=== PATIENT | female | born 1980 | race Two or more races ===

== ENCOUNTER 2025-02-22 23:48 | Emergency (ER) | payer OTHER ==
[~2025-02-22] VITALS: Ht 175.3 cm; Wt 52.2 kg
[2025-02-23] MEDS ORDERED: 0.9 % SODIUM CHLORIDE 1,000 ML IV ONE (01:45)
[2025-02-23] MEDS ORDERED: KETOROLAC TROMETHAMINE 30 MG VIAL IM STA (01:47)
[2025-02-23] MEDS ORDERED: KETOROLAC TROMETHAMINE 30 MG VIAL ONE (01:49)
[2025-02-23] MEDS ORDERED: BARIUM SULFATE 450 ML ORAL.SUSP PO ONE (01:52)
[2025-02-23 02:40] LABS: URINE APPEARANCE Clear; URINE BILIRRUBIN Negative (NEGATIVE); URINE BLOOD Negative; URINE COLOR Yellow; URINE GLUCOSE Negative (NEGATIVE); URINE LEUKOCYTE Trace; URINE NITRATE Negative; URINE PROTEIN Trace (NEGATIVE); URINE UROBILINOGEN 0.2 E.U./dl
[2025-02-23 02:41] LABS: BASO % 0.3 % (0.1-1.2); EOS # 0.01 (0.04-0.54); EOS % 0.1 % (0.7-7.0); HEMATOCRIT 35.6 % (34.1-44.9); HEMOGLOBIN 11.9 g/dL (11.2-15.7); LYMPH # 0.22 (1.18-3.74); LYMPH % 3.1 % (19.3-53.1); MEAN CORPUSCULAR HEMOGLOBIN 28.4 pg (25.6-32.2); MONO # 0.62 (0.24-0.82); MONO % 8.6 % (4.7-12.5); NEUT # 6.32 (1.56-6.13); NEUT % 87.6 % (34.0-71.1); RED BLOOD COUNT 4.19 M/uL (3.93-5.22); RED CELL DISTRIBUTION WIDTH 12.4 % (11.6-14.4)
[2025-02-23 02:45] LABS: URINE BACTERIA 199.4 uL (0.0-1933); URINE EPITHELIAL CELLS 27.9 uL (0.0-38.8); URINE RBC 4.2 uL (0.0-20.8); URINE WBC 9.3 uL (0.0-23.2)
[2025-02-23 02:56] LABS: PLATELET COUNT 124 K/uL (163-369)
[2025-02-23 02:57] LABS: URINE CAST 0.58 uL (0.0-1.40); URINE KETONE 80 (NEGATIVE)
[2025-02-23 02:58] LABS: INR 1.15; PARTIAL THROMBOPLASTIN TIME 29.9 SECONDS (22.0-34.0); PROTHROMBIN TIME 12.4 SECONDS (9.0-11.5)
[2025-02-23 03:05] LABS: ALBUMIN 4.2 gm/dL (3.4-5.0); ALKALINE PHOSPHATASE 61 U/L (50-136); ALT/SGPT 21 U/L (12-78); AMYLASE 69 U/L (25-115); ANION GAP 11 (10.0-20.0); AST/SGOT 15 U/L (15-37); BILIRUBIN TOTAL 0.69 mg/dL (0.3-1.2); BILIRUBIN,CONJUGATED 0.17 mg/dL (0.0-0.2); BILIRUBIN,UNCONJUGATED 0.52 mg/dL (0.0-0.6); BLOOD UREA NITROGEN 7 mg/dL (7-18); BUN CREA RATIO 10 (7.0-25.0); CALCIUM 9.2 mg/dL (8.5-10.1); CARBON DIOXIDE 26 mEq/L (21-32); CHLORIDE 106 mmol/L (98-107); GFR 91.33; GLOBULINA 3.7 G/DL (2.4-3.5); GLUCOSE FASTING 108 mg/dL (65-100); LIPASE 21 U/L (13-75); OSMOLALITY SERUM 278 MOSM/KG (275-295); POTASSIUM 3.15 mEq/L (3.5-5.1); SODIUM 140 mmol/L (136-145); TOTAL PROTEIN 7.9 gm/dL (6.4-8.2)
[2025-02-23 03:49] LABS: HCG QUANTITATIVE < 1 mUI/mL (1-3)
[2025-02-23] MEDS ORDERED: SURFAK240 M1 PO (08:38)
[2025-02-23] MEDS ORDERED: PEPCID AC20 MG PO (08:38)
== END 2025-02-23 09:56 | disposition home or self-care (01) ==
LOC: ER 23:52
PROVIDERS: General Practice
DX: R10.9 Unspecified abdominal pain (principal); Z88.8 Allergy status to other drugs, medicaments and biological substances; K59.00 Constipation, unspecified